=== PATIENT | female | born 1960 | race Caucasian/White ===

== ENCOUNTER → 2017-01-28 | Day surgery (SDC) | payer BC ==
[~2017-01-28] MED LIST: CRESTOR5 MG PO; INSU300I SQ; IV RINGERS,LACTATED 1000ML 1,000 ML IV SCH; LIDOCAINE 1% PF 2 ML VIAL. ID PRN; LIDOCAINE 2% PF Vial for OR 5 ML VIAL. ONE; LISI1TAB3 PO; METF850T2 PO; MIDAZOLAM HCL/PF 2 MG/2 ML VIAL. IV PRN; PROPOFOL 40 ML IV ONE; RANI150C PO; fentaNYL PF VIAL 100 MCG/2 ML VIAL IV PRN
[2017-01-28 09:39] VITALS: BP 105/65
--- NOTE | 2017-01-31 11:02 | PATHOLOGY ---
PATHOLOGY REPORT * * * * * * * * FINAL DIAGNOSIS: Colonic mucosa "hepatic flexure biopsy": - Polypoid colonic mucosa consistent with hyperplastic polyp. - There is no evidence of adenomatous change, high-grade dysplasia or malignancy. (SHA:pit; 01/31/2017) REPORT ELECTRONICALLY SIGNED BY: Freddy Keating M.D. DATE/TIME: 01/31/2017 11:01 * * * * * * * * GROSS PATHOLOGY: Received in formalin labeled "Shavon Rodriguez, hepatic flexure biopsy," is a segment of patel soft tissue measuring 0.4 cm in maximum dimensions. The specimen is submitted entirely in cassette A1. (JPM; 01/28/17) INITIAL CPT CODE(S): A; 79805 Professional services performed by [facility] [place] [address] Technical services performed by [facility] at [address] [place] [address]. SPECIMEN(S) RECEIVED: A.Hepatic flexure biopsy CLINICAL HISTORY: Screening PATIENT: SHAVON RODRIGUEZ /AGE: 610/20/1960 (Age: 56) PATIENT #: [id number] ALT CASE #: SPECIMEN COLLECTION DATE: 01/28/2017 SPECIMEN RECEIVED DATE: 01/28/2017 [facility] - [address] [place] [address] - PHONE: [phone] * * * END OF REPORT * * *
== END | disposition home or self-care (01) ==
LOC: SURG 08:00
PROVIDERS: ATTEND Internal Medicine Gastroenterology
DX: Z12.11 Encounter for screening for malignant neoplasm of colon (principal); D12.3 Benign neoplasm of transverse colon; K64.0 First degree hemorrhoids; E11.9 Type 2 diabetes mellitus without complications; I10 Essential (primary) hypertension; E78.00 Pure hypercholesterolemia, unspecified; E66.9 Obesity, unspecified; Z83.3 Family history of diabetes mellitus; Z82.49 Family history of ischemic heart disease and other diseases of the circulatory system; Z68.43 Body mass index [BMI] 50.0-59.9, adult; Z72.89 Other problems related to lifestyle; Z86.39 Personal history of other endocrine, nutritional and metabolic disease
CPT/HCPCS: 45380; 82962; 88305; J2704; J2001

== ENCOUNTER → 2019-07-26 | Outpatient (CLI) | payer BC ==
[2017-01-28 09:39] VITALS: BP 105/65
[~2019-07-26] MED LIST changes: -IV RINGERS,LACTATED 1000ML 1,000 ML IV SCH; -LIDOCAINE 1% PF 2 ML VIAL. ID PRN; -LIDOCAINE 2% PF Vial for OR 5 ML VIAL. ONE; +LISI1TAB23 PO; -LISI1TAB3 PO; -METF850T2 PO; +METF850T8 PO; -MIDAZOLAM HCL/PF 2 MG/2 ML VIAL. IV PRN; -PROPOFOL 40 ML IV ONE; -fentaNYL PF VIAL 100 MCG/2 ML VIAL IV PRN
--- NOTE | 2019-07-26 13:22 | KCIC ---
EXAM: MRI right shoulder DATE: 07/26/2019 12:30 PM COMPARISON: None INDICATION: Right shoulder pain TECHNIQUE: Multiplanar, multisequence MRI of the right shoulder was performed without contrast. FINDINGS: Small right shoulder joint effusion. Subacromial-subdeltoid bursal fluid from full-thickness rotator cuff tear described below. AC joint degenerative changes are seen with small inferior projecting osteophytes. Type I acromion. No os acromiale. Full-thickness tear of the anterior fibers of the supraspinatus tendon measuring approximately 1.7 cm in AP dimension. Short segment partial-thickness articular sided tear of the infraspinatus measuring 8 mm in AP dimension is suspected. Rotator cuff muscle bulk and signal is normal. No significant fatty atrophy. Posterior labrum is mildly diminutive, likely physiologic may be seen with chronic tear or degeneration. Mild increased signal and thickening of the intra-articular long head biceps tendon. Extra-articular long head biceps tendon is normal in signal and morphology. Articular cartilage is grossly preserved. No evidence for fracture or osteonecrosis. IMPRESSION: 1. Full-thickness, partial width tear of the supraspinatus tendon. 2. Partial-thickness reticular sided tear of the infraspinatus tendon measuring 8 mm in AP dimension. 3. Posterior labrum is mildly diminutive, this may be physiologic for this patient although chronic tear/degeneration would have similar appearance. 4. Mild intra-articular long head biceps tendinosis. Electronically signed by: Steve Briscoe MD (07/26/2019 1:19 PM) [id number]
== END | disposition home or self-care (01) ==
LOC: KCIC MRI 12:10
PROVIDERS: ATTEND Family Medicine
DX: M75.101 Unspecified rotator cuff tear or rupture of right shoulder, not specified as traumatic (principal); M75.21 Bicipital tendinitis, right shoulder; M25.411 Effusion, right shoulder; M19.011 Primary osteoarthritis, right shoulder; M25.711 Osteophyte, right shoulder
CPT/HCPCS: 73221

== ENCOUNTER → 2020-01-31 | Outpatient (CLI) | payer BC, OTHER ==
[2017-01-28 09:39] VITALS: BP 105/65
[~2020-01-31] MED LIST changes: +CHOL500050 PO; +CYAN10002 IJ; +DOCU-109 PO; +HYDR-2145 PO; +LISI-130 PO; +OMEP20CA16 PO; +ONDA8TAB9 SL; +OXYC-325 PO; +SITA100T PO
== END | disposition home or self-care (01) ==
LOC: LAB 13:50
PROVIDERS: ATTEND Orthopaedic Surgery Sports Medicine
DX: Z01.812 Encounter for preprocedural laboratory examination (principal); Z20.828 Contact with and (suspected) exposure to other viral communicable diseases; M75.101 Unspecified rotator cuff tear or rupture of right shoulder, not specified as traumatic
CPT/HCPCS: U0003-CS

== ENCOUNTER 2020-02-04 06:01 | Day surgery (SDC) | payer OTHER ==
[~2020-02-04] VITALS: Ht 162.6 cm; Wt 100.7 kg
[~2020-02-04 06:01] MED LIST changes: -DOCU-109 PO; -ONDA8TAB9 SL; -OXYC-325 PO
[2020-02-04] MEDS ORDERED: fentaNYL PF VIAL 100 MCG/2 ML VIAL IV PRN (07:00)
[2020-02-04] MEDS ORDERED: IV RINGERS,LACTATED 1000ML 1,000 ML IV SCH (07:00)
[2020-02-04] MEDS ORDERED: HYDROmorphone 2 MG/ML VIAL IV PRN (07:00)
[2020-02-04] MEDS ORDERED: LIDOCAINE 1% PF 2 ML VIAL. ID PRN (07:00)
[2020-02-04] MEDS: INSULIN LISPRO 100 UNIT/ML 3ML VIAL for OP,RR ONLY. SQ PRN ×2 (07:00→09:30)
[2020-02-04] MEDS ORDERED: MORPHINE SULFATE 2 MG/ML VIAL. IV PRN (07:00)
[2020-02-04] MEDS ORDERED: ONDANSETRON PF 4 MG/2 ML VIAL. IV PRN (07:00)
[2020-02-04] MEDS ORDERED: PROCHLORPERAZINE 10 MG/2 ML VIAL. IV PRN (07:00)
[2020-02-04] MEDS ORDERED: DEXAMETHASONE SOD PHOS 4 MG/ML VIAL ONE (07:05)
[2020-02-04] MEDS ORDERED: ONDANSETRON PF 4 MG/2 ML VIAL. ONE (07:05)
[2020-02-04] MEDS ORDERED: LIDOCAINE 2% PF 5 ML VIAL. ONE (07:05)
[2020-02-04] MEDS ORDERED: SUCCINYLCHOLINE 200 MG/10 ML VIAL. ONE (07:05)
[2020-02-04] MEDS ORDERED: PROPOFOL 10 MG/ML (20ML) VIAL. IV ONE (07:05)
[2020-02-04] MEDS ORDERED: ROPIVacaine 0.5% PF 20 ML VIAL. ONE (07:06)
[2020-02-04] MEDS ORDERED: ROCURONIUM 50 MG/5 ML VIAL. ONE (07:06)
[2020-02-04] MEDS ORDERED: fentaNYL PF VIAL 100 MCG/2 ML VIAL ONE ×2 (07:06→09:39)
[2020-02-04] MEDS ORDERED: MIDAZOLAM HCL/PF 2 MG/2 ML VIAL. ONE (07:07)
[2020-02-04] MEDS ORDERED: BUPIVACAINE MPF 0.5% 30 ML VIAL. ONE (07:15)
[2020-02-04] MEDS ORDERED: LIDOCAINE 1% Multi-Dose 20 ML VIAL. ONE (07:15)
[2020-02-04] MEDS ORDERED: EPINEPHrine VIAL 30 MG/30 ML VIAL ONE (07:15)
--- NOTE | 2020-02-04 07:37 | DISCH ---
DISCHARGE INSTRUCTIONS Condition on Discharge Condition on Discharge: Stable Activity After Discharge Activity Instructions for Disc: Other, see below Other activity instructions: arm to remain in sling Bathing Instructions: Shower-keep dressing dry Weight Bearing Status after Di: Non weight bearing Diet after Discharge Diet after Discharge: Regular Wound Incision Care Wound/Incision Care: Ice to area for comfort, Keep wound/cast CDI, Keep wound elevated, Change dressing Other wound/incision instructi: ok to change dressing after [address] after DC Call your doctor for: Concerns you may have Follow-Up Follow up with: [facility] in 2 wks ROBY COCHRAN II, MD Feb 04, 2020 07:36
[2020-02-04] MEDS ORDERED: ePHEDrine PF IN SALINE 50 MG/10 ML SYRINGE. IV ONE (08:37)
[2020-02-04] MEDS ORDERED: PHENYLEPHRINE in 0.9% NACL PF 1 MG/10 ML SYRINGE. IV ONE (08:37)
[2020-02-04] MEDS ORDERED: NEOSTIGMINE METHYLSULFATE 5 MG/5 ML SYRINGE. ONE (08:54)
[2020-02-04] MEDS ORDERED: GLYCOPYRROLATE 1 MG/5 ML VIAL. ONE (08:54)
--- NOTE | 2020-02-04 09:10 | PDOC4 ---
Operative Note Operative Note Date of procedure: 01/27/2020 Surgeon: Jose Miguel Cochran Market Risk Specialist: Hilario Davila Preoperative diagnosis: Complete right shoulder rotator cuff tear Postoperative diagnosis: Same Procedure performed: Arthroscopic right shoulder rotator cuff repair Anesthesia: General plus regional nerve block Complications: None Components inserted: [employer] helacoil anchor, #2 ultra braid as well Blood loss: 5 mL Findings: Patient had an L-shaped tear at her supraspinatus and leading edge of infraspinatus Glenohumeral cartilage was well preserved No loose bodies Abundant fibrotic bursal tissue Labrum intact circumferentially Biceps unremarkable Reason for procedure: Patient is a 59-year-old female with persistent shoulder pain and dysfunction. Please see my outpatient consult notes for further details. Her and I had a discussion of the risks, benefits, and alternatives after failure conservative therapies and review of MRI, and she elected to proceed with surgery. Description of procedure: Patient was greeted the preoperative area by myself or the correct extremity was verified and marked. She had placement of a regional nerve block by the anesthesiology team and was then brought back to the operati ng room. She was transferred gently supine to the operating table and underwent successful induction of a general anesthetic. She was then sat up in a beachchair position maintaining a large pad under her legs, she was secured to the bed with all pressure points padded, C-spine maintained in neutral position. After this. The right upper extremity and shoulder girdle were prepped and draped in her usual sterile fashion including Ioban at the periphery of the drapes. We then proceeded to conduct our standard preoperative timeout. After this, I palpated marked surface anatomy and irene lines for my planned portal sites. I used a spinal needle to localize a posterior superior portal and incised skin accordance with this. I introduce a blunt arthroscopic trocar into the glenohumeral joint followed by the camera. I then created an anterosuperior portal under spinal needle localization and dilated this hole. I then conducted my diagnostic arthroscopy with the above-noted findings. After this, I created a lateral portal and debrided the rotator cuff footprint and tendon edges from this vantage point as well. I then reposition the camera into the subacromial space and performed a bursectomy with combination of shaver and electrocautery device. After achieved appropriate visualization I then used a [employer] and Spectrum to shuttle a suture limbs through in a simple configuration for a margin convergence of the infraspinatus. It should be noted, I had created an accessory anterolateral portal for suture management. I then placed a single anchor into the remaining defect, was about 1 cm in length. After this, used the first pass device to shuttle 2 suture limbs through a simple configuration and tied these down using arthroscopic knot tying techniques. I then removed all loose debris through repeated aspiration and my shaver. After this, the arthroscopic instruments were withdrawn and the excess fluid was removed. The arm and shoulder were cleansed and dried after the portals were repaired with simple interrupted 3-0 nylon. After this, a sterile bulky dressing was applied and her arm was placed to an abduction pillow sling. No complications. At the conclusion of surgery, she was laid supine and transferred on spine to the recovery cart and taken to PACU in a stable and extubated condition. Postoperative plan is to discharge her home. We will get her started on physical therapy. I will see her back in my outpatient orthopedic surgery clinic in 2 weeks, sooner should a problem arise. She will be discharged nonweightbearing, right upper extremity. JOSE MIGUEL COCHRAN II, MD Feb 04, 2020 09:10
[2020-02-04] MEDS ORDERED: INSULIN LISPRO 100 UNIT/ML 3ML VIAL for OP,RR ONLY. SQ ONE ×2 (09:30)
[2020-02-04] MEDS ORDERED: DOCU-109 PO (09:38)
[2020-02-04] MEDS ORDERED: OXYC-325 PO (09:41)
[2020-02-04] MEDS: fentaNYL PF VIAL 100 MCG/2 ML VIAL IV PRN ×2 (09:42→09:57)
[2020-02-04] MEDS ORDERED: ONDA8TAB9 SL (09:42)
[2020-02-04] MEDS ORDERED: oxyCODONE/APAP 5/325 1 TAB TABLET PO ONE (09:45)
[2020-02-04 10:15] VITALS: BP 138/62
== END 2020-02-04 10:45 | disposition home or self-care (01) ==
LOC: SURG 06:01
PROVIDERS: ATTEND Orthopaedic Surgery Sports Medicine
DX: M75.121 Complete rotator cuff tear or rupture of right shoulder, not specified as traumatic (principal); I10 Essential (primary) hypertension; Z83.3 Family history of diabetes mellitus; Z72.89 Other problems related to lifestyle; Z79.899 Other long term (current) drug therapy
CPT/HCPCS: 29827; 36415; 82306; 82962; C1713; C1782; J0171; J0330; J0690; J1100; J1815; J2250; J2370; J2405; J2704; J2710; J2795; J3010; J3490